=== PATIENT | female | born 1940 | race Caucasian/White ===

== ENCOUNTER → 2021-04-24 15:48 | Outpatient (CLI) | payer MEDICARE, BC, SELFPAY | PROVIDERS: Family Provider Internal Medicine Geriatric Medicine; PCP Registered Nurse Diabetes Educator; Referring Provider Registered Nurse Diabetes Educator; Visit Provider Registered Nurse Diabetes Educator | DX: N39.0 Urinary tract infection, site not specified (principal) | CPT/HCPCS: 87086 ==

== ENCOUNTER → 2021-06-05 10:06 | Outpatient (CLI) | payer MEDICARE, BC, SELFPAY | PROVIDERS: Family Provider Internal Medicine Geriatric Medicine; PCP Registered Nurse Diabetes Educator; Visit Provider Registered Nurse Diabetes Educator | DX: N39.0 Urinary tract infection, site not specified (principal); R30.0 Dysuria | CPT/HCPCS: 87086 ==

== ENCOUNTER → 2021-06-30 16:17 | Outpatient (CLI) | payer MEDICARE, BC, SELFPAY | PROVIDERS: Family Provider Internal Medicine Geriatric Medicine; PCP Registered Nurse Diabetes Educator; Referring Provider Registered Nurse Diabetes Educator; Visit Provider Registered Nurse Diabetes Educator | DX: N39.0 Urinary tract infection, site not specified (principal) | CPT/HCPCS: 87077; 87086; 87186 ==

== ENCOUNTER → 2021-07-18 09:29 | Outpatient (CLI) | payer MEDICARE, BC, SELFPAY | PROVIDERS: Family Provider Internal Medicine Geriatric Medicine; PCP Registered Nurse Diabetes Educator; Visit Provider Urology | DX: N39.0 Urinary tract infection, site not specified (principal) | CPT/HCPCS: 87086 ==

== ENCOUNTER → 2021-07-18 10:38 | Outpatient (CLI) | payer MEDICARE, BC, SELFPAY ==
[2021-07-18 12:46] LABS: BUN Creatinine Ratio 28.2 (6-22); Blood Urea Nitrogen 33 mg/dL (7-17); Calcium 10.2 mg/dL (8.4-10.2); Carbon Dioxide 24 mmol/L (22-32); Chloride 104 mmol/L (98-107); Estimated Glomerular Filt Rate 44.4 mL/min (>60); Glucose 112 mg/dL (80-110); HEMOLYSIS < 15 (0-50); Potassium 4.5 mmol/L (3.4-5.1); Sodium 140 mmol/L (137-145)
== END ==
PROVIDERS: Family Provider Internal Medicine Geriatric Medicine; PCP Registered Nurse Diabetes Educator; Referring Provider Urology; Visit Provider Urology
DX: N39.0 Urinary tract infection, site not specified (principal); N39.41 Urge incontinence; R31.0 Gross hematuria; G20 Parkinson's disease; N89.8 Other specified noninflammatory disorders of vagina; Z87.891 Personal history of nicotine dependence; Z68.26 Body mass index [BMI] 26.0-26.9, adult
CPT/HCPCS: 36415; 80048; 81002; 87086; 99215

== ENCOUNTER → 2021-07-24 09:51 | Outpatient (CLI) | payer MEDICARE, BC, SELFPAY ==
--- NOTE | 2021-07-24 09:53 | DI.CT.S_ITS ---
PROCEDURE: CT ABDOMEN PELVIS WO/W CON INDICATIONS: Recurring urinary tract infections gross hematuria TECHNIQUE: Optional 5 mm thick noncontrast images acquired from the diaphragm to the symphysis pubis. After the administration of intravenous contrast, 5 mm thick images acquired from the diaphragm to the symphysis pubis after a 10-minute delay. 2 mm thick coronal and sagittal reformats were then performed of the kidneys and ureters. For radiation dose reduction, the following was used: automated exposure control, adjustment of mA and/or kV according to patient size. COMPARISON: [facility], CT, IVP (ABD & PEL WWO CONTRAST), 07/10/2014, 9:38. [facility], CT, ABDOMEN W&WO CONTRAST, 04/06/2014, 10:51. [facility], CT, ABDOMEN/PELVIS WITH CONTRAST, 05/14/2016, 10:18. FINDINGS: Image quality: Excellent. Lung bases: Subpleural septal thickening and mild pulmonary fibrosis. There is a 0.6 cm ground-glass nodule in the right lower lobe. Heart size is normal. There is severe coronary artery calcification. Small hiatal hernia. Urinary system: There is a 2.2 cm parapelvic cyst in the inferior pole of the left kidney. Both kidneys are normal in size, without hydronephrosis or nephrolithiasis on pre-contrast images. Mild bilateral perinephric fat stranding. There is symmetric renal enhancement. Bilateral renal cortical scars are present, most noticeable in the superior lateral aspect of the left kidney. Renal calyces appear normal in morphology when filled with contrast. Opacified portions of both ureters demonstrate normal caliber. Bladder wall thickness is normal. No calcified bladder stones. Other solid organs: Liver is normal in size and enhancement. Gallbladder is surgically absent. Biliary system is non dilated. Pancreas enhances normally. Spleen is normal in size and enhancement. No adrenal nodules. Peritoneum and bowel: Bowel loops demonstrate normal wall thickness and caliber. There are numerous colonic diverticula in sigmoid colon. No CT findings to suggest acute diverticulitis. No free fluid or air. Nodes and vessels: No retroperitoneal or mesenteric adenopathy by size criteria. Aorta and inferior vena cava are normal in size. Moderate to severe atherosclerotic calcifications. Abdominal wall: No ventral hernias. Pelvis: No pathologic free pelvic fluid. No inguinal hernias or adenopathy. Bones: Mild levoscoliosis. There are degenerative and postsurgical changes in the lower thoracic spine and lumbar spine. No suspicious bony lesions. No vertebral body compression fractures. IMPRESSION: 1. No renal stone or hydronephrosis. A cause for gross hematuria is not identified. 2. There is a 2.2 cm parapelvic cyst in the inferior pole of the left kidney. 3. Bilateral renal cortical scars, most noticeable in the superior lateral aspect of the left kidney. 4. Diverticulosis without diverticulitis. 5. Bilateral interstitial thickening and mild pulmonary fibrosis. 6. A 6 mm nodule in the right lower lobe. Please see enclosed follow-up recommendation. 7. Severe coronary artery calcification. Fleischner Society criteria for SOLID lung nodule followup. Nodule size (mm)Low-risk patientHigh-risk patient?4No follow-up neededFollow-up at 12 mo; if no change, no further follow-up>1-4Amnhzy-ks CT at 12 mo; if no change, no further follow-up needed.Initial follow-up CT at 6-12 mo, then 18-24 mo if no change. >6-8Initial follow-up CT at 6-12 mo, then 18-24 mo if no change. Initial follow-up CT at 3-6 mo, then 9-12 mo and 24 mo if no change. >8Follow-up CT at 3, 9, 24 mo. Or PET and/or biopsy.Same as for low-risk pts. Dictated by: Taisha Alberto M.D. on 07/24/2021 at 15:34 Approved by: Taisha Alberto M.D. on 07/24/2021 at 17:37
== END ==
PROVIDERS: Family Provider Internal Medicine Geriatric Medicine; PCP Registered Nurse Diabetes Educator; Referring Provider Urology; Visit Provider Urology
DX: N39.0 Urinary tract infection, site not specified (principal); R31.0 Gross hematuria; N28.1 Cyst of kidney, acquired; N28.89 Other specified disorders of kidney and ureter; K57.90 Diverticulosis of intestine, part unspecified, without perforation or abscess without bleeding; J84.10 Pulmonary fibrosis, unspecified
CPT/HCPCS: 74178; Q9967

== ENCOUNTER → 2021-08-12 07:10 | Outpatient (CLI) | payer MEDICARE, BC, SELFPAY ==
[2021-08-12 09:11] LABS: Free T3, Triiodothyronine Free 2.53 pg/mL (2.77-5.27); Free T4, Direct Thyroxine 1.29 ng/dL (0.78-2.19)
== END ==
PROVIDERS: Family Provider Internal Medicine Geriatric Medicine; PCP Registered Nurse Diabetes Educator; Referring Provider Registered Nurse Diabetes Educator; Visit Provider Registered Nurse Diabetes Educator
DX: E03.9 Hypothyroidism, unspecified (principal)
CPT/HCPCS: 36415; 84439; 84443; 84481

== ENCOUNTER → 2021-09-30 15:17 | Outpatient (CLI) | payer MEDICARE, BC, SELFPAY | PROVIDERS: Family Provider Internal Medicine Geriatric Medicine; PCP Registered Nurse Diabetes Educator; Referring Provider Urology; Visit Provider Urology | DX: N39.41 Urge incontinence (principal); N39.0 Urinary tract infection, site not specified; R31.0 Gross hematuria; N89.8 Other specified noninflammatory disorders of vagina; Z87.891 Personal history of nicotine dependence; R30.0 Dysuria | CPT/HCPCS: 51798; 81002; 87077; 87086; 87186; 99214 ==

== ENCOUNTER → 2021-10-10 10:37 | Outpatient (CLI) | payer MEDICARE, BC, SELFPAY ==
--- NOTE | 2021-10-10 10:39 | DI.RAD.S_ITS ---
PROCEDURE: FL CYSTOGRAM INDICATIONS: Rule out vesicoureteral reflux COMPARISON: [facility], CT, CT ABDOMEN PELVIS WO/W CON, 07/24/2021, 10:10. FINDINGS: KUB: Preprocedural picker / packer film demonstrates a normal bowel gas pattern. A Snell catheter is present. No suspicious abdominal calcifications. Bony structures are unremarkable. Note is made of lumbar sacral fusion. Metallic hardware partially obscure pelvic structures. Bladder: The filled bladder appears normal in contour. Early images demonstrate no bladder wall trabeculations. There is grade IV vesicoureteral reflux on the left and grade III vesicoureteral reflux on the right. No contrast extravasation. IMPRESSION: 1. Bilateral vesicoureteral reflux, grade IV on the left and grade III on the right. 2. Normal appearance of urinary bladder. Dictated by: Taisha Alberto M.D. on 10/10/2021 at 16:05 Approved by: Taisha Alberto M.D. on 10/10/2021 at 16:10
== END ==
PROVIDERS: Family Provider Internal Medicine Geriatric Medicine; PCP Registered Nurse Diabetes Educator; Referring Provider Urology; Visit Provider Urology
DX: N39.0 Urinary tract infection, site not specified (principal); N13.70 Vesicoureteral-reflux, unspecified
CPT/HCPCS: 74430

== ENCOUNTER → 2021-12-29 10:30 | Outpatient (CLI) | payer MEDICARE, BC, SELFPAY | PROVIDERS: Family Provider Internal Medicine Geriatric Medicine; PCP Registered Nurse Diabetes Educator; Visit Provider Registered Nurse Diabetes Educator | DX: I10 Essential (primary) hypertension (principal) | CPT/HCPCS: 87077; 87086; 87186 ==

== ENCOUNTER → 2022-01-09 09:29 | Outpatient (CLI) | payer MEDICARE, BC, SELFPAY ==
[2022-01-09 11:44] LABS: Creatinine Urine Random 141.9 mg/dL
[2022-01-09 11:49] LABS: Microalbumi Creatinin Ratio Ur 46.5 ug/mg CR (<30); Microalbumin Urine Random 6.6 mg/dL (0-1.6)
== END ==
PROVIDERS: Family Provider Internal Medicine Geriatric Medicine; PCP Registered Nurse Diabetes Educator; Referring Provider Registered Nurse Diabetes Educator; Visit Provider Registered Nurse Diabetes Educator
DX: E03.9 Hypothyroidism, unspecified (principal); E11.9 Type 2 diabetes mellitus without complications; E78.5 Hyperlipidemia, unspecified; I10 Essential (primary) hypertension
CPT/HCPCS: 82043; 82570

== ENCOUNTER → 2022-01-30 10:23 | Outpatient (CLI) | payer MEDICARE, BC, SELFPAY | PROVIDERS: Family Provider Internal Medicine Geriatric Medicine; PCP Registered Nurse Diabetes Educator; Visit Provider Urology | DX: R30.0 Dysuria (principal); N13.70 Vesicoureteral-reflux, unspecified; N89.8 Other specified noninflammatory disorders of vagina; Z87.891 Personal history of nicotine dependence | CPT/HCPCS: 51798; 81002; 87077; 87086; 87186; 99212 ==

== ENCOUNTER → 2022-05-28 08:04 | Outpatient (CLI) | payer MEDICARE, BC, SELFPAY | PROVIDERS: Family Provider Internal Medicine Geriatric Medicine; PCP Registered Nurse Diabetes Educator; Visit Provider Urology | DX: N39.0 Urinary tract infection, site not specified (principal) | CPT/HCPCS: 81002; 87077; 87086; 87186; 99213 ==

== ENCOUNTER → 2022-06-18 09:56 | Outpatient (CLI) | payer MEDICARE, BC, SELFPAY ==
[2022-07-02 12:13] LABS: Misc. to WA State Lab SEE SEPARATE REPORTS
== END ==
PROVIDERS: Family Provider Internal Medicine Geriatric Medicine; PCP Registered Nurse Diabetes Educator; Visit Provider Urology
DX: N39.0 Urinary tract infection, site not specified (principal); N13.70 Vesicoureteral-reflux, unspecified; B37.2 Candidiasis of skin and nail; N89.8 Other specified noninflammatory disorders of vagina; R33.9 Retention of urine, unspecified; N39.41 Urge incontinence; Z88.1 Allergy status to other antibiotic agents; Z87.891 Personal history of nicotine dependence
CPT/HCPCS: 81002; 87077; 87086; 87186; 99214

== ENCOUNTER → 2022-07-09 13:32 | Outpatient (CLI) | payer MEDICARE, BC, SELFPAY | PROVIDERS: Family Provider Internal Medicine Geriatric Medicine; PCP Registered Nurse Diabetes Educator; Referring Provider Registered Nurse Diabetes Educator; Visit Provider Registered Nurse Diabetes Educator | DX: M81.0 Age-related osteoporosis without current pathological fracture (principal); Z13.820 Encounter for screening for osteoporosis; Z78.0 Asymptomatic menopausal state; Z79.83 Long term (current) use of bisphosphonates; Z87.311 Personal history of (healed) other pathological fracture | CPT/HCPCS: 77080 ==

== ENCOUNTER → 2022-07-21 08:36 | Outpatient (CLI) | payer MEDICARE, BC, SELFPAY | PROVIDERS: Family Provider Internal Medicine Geriatric Medicine; PCP Registered Nurse Diabetes Educator; Visit Provider Urology | DX: N39.0 Urinary tract infection, site not specified (principal); N13.70 Vesicoureteral-reflux, unspecified; N89.8 Other specified noninflammatory disorders of vagina; N39.41 Urge incontinence; Z88.1 Allergy status to other antibiotic agents | CPT/HCPCS: 51798; 81002; 87077; 87086; 87186; 99214 ==

== ENCOUNTER → 2022-08-10 08:13 | Outpatient (CLI) | payer MEDICARE, BC, SELFPAY ==
--- NOTE | 2022-08-10 | DI.MG.S_ITS ---
BILATERAL DIGITAL DIAGNOSTIC MAMMOGRAM 3D/2D: 08/10/2022 CLINICAL: Breast pain. Comparison is made to exams dated: 10/25/2018 mammogram - [facility], 09/08/2018 mammogram, 03/08/2017 mammogram, and 03/03/2016 mammogram - [facility]. There are scattered areas of fibroglandular density in both breasts (category b / 25%-50% glandular tissue). There are benign calcifications in both breasts. There also are benign vascular calcifications in both breasts. Additionally, there is a biopsy clip in the left breast. No significant masses, calcifications, or other findings are seen in either breast. IMPRESSION: INCOMPLETE: NEEDS ADDITIONAL IMAGING EVALUATION There is no mammographic abnormality seen in the left breast to correspond with the pain, however, targeted ultrasound of the left breast is recommended and will be performed immediately following this exam. Based on the Tyrer Cuzick model (a risk assessment model) the patient's lifetime risk is 0.7% and her 10 year risk is 0.0%. According to the ACR, ACS, and NCCN guidelines, an annual breast MRI exam along with mammogram is recommended if the patient's lifetime risk is 20% or greater. This exam was interpreted at Station ID: [id number]. NOTE: For mammograms, a report in lay terms will be sent to the patient. Approximately 15% of breast malignancies will not be visualized mammographically. In the management of a palpable breast mass, a negative mammogram must not discourage biopsy of a clinically suspicious lesion. Electronically Signed By: Alona Maloney M.D. lk/:08/10/2022 09:01:05 ACR BI-RADS Category 0: Incomplete 3340F
--- NOTE | 2022-08-10 09:38 | DI.US.S_ITS ---
At the request of: PEREZ NIETO Procedure: US breast LT limited LIMITED ULTRASOUND OF LEFT BREAST AND AXILLA: 08/10/2022 CLINICAL: Diffuse left breast pain. Comparison is made to exams dated: 08/10/2022 mammogram - [facility], 10/25/2018 mammogram, 10/25/2018 ultrasound - [facility], and 09/08/2018 mammogram - [facility]. Color flow ultrasound of the left breast axilla was performed on the areas of interest. Sierra scale images of the real-time examination were reviewed. IMPRESSION: NEGATIVE There is no sonographic evidence of malignancy. There is no mammographic or sonographic abnormality seen in the left breast to correspond with the pain, however, clinical followup is recommended. Return to annual mammogram screening schedule is recommended. This exam was interpreted at Station ID: [id number]. Electronically Signed By: Alona Maloney M.D. lk/:08/10/2022 10:51:34 letter sent: Clinical Evaluation Ultrasound BI-RADS: 1 Negative Continued Report - Page 2 of 2 Patient Name: KARLENE DOLL date: 1940 Sex: F Attending Physician: [place] Indications: Date: 08/10/2022 10:15 At the request of: PEREZ NIETO Procedure: US breast LT limited
== END ==
PROVIDERS: Family Provider Internal Medicine Geriatric Medicine; PCP Registered Nurse Diabetes Educator; Referring Provider Registered Nurse Diabetes Educator; Visit Provider Registered Nurse Diabetes Educator
DX: R92.8 Other abnormal and inconclusive findings on diagnostic imaging of breast (principal); N64.4 Mastodynia
CPT/HCPCS: 76642; 77066; G0279

== ENCOUNTER → 2022-08-12 09:12 | Outpatient (CLI) | payer MEDICARE, BC, SELFPAY | PROVIDERS: Family Provider Internal Medicine Geriatric Medicine; PCP Registered Nurse Diabetes Educator; Visit Provider Urology | DX: N39.0 Urinary tract infection, site not specified (principal); N39.41 Urge incontinence; N13.70 Vesicoureteral-reflux, unspecified; E11.41 Type 2 diabetes mellitus with diabetic mononeuropathy; Z87.891 Personal history of nicotine dependence; Z88.1 Allergy status to other antibiotic agents | CPT/HCPCS: 81002; 87086; 99214 ==

== ENCOUNTER → 2022-09-11 08:59 | Outpatient (CLI) | payer MEDICARE, BC, SELFPAY | PROVIDERS: Family Provider Internal Medicine Geriatric Medicine; PCP Registered Nurse Diabetes Educator; Visit Provider Urology | DX: N39.0 Urinary tract infection, site not specified (principal); N39.41 Urge incontinence; R33.9 Retention of urine, unspecified; N13.70 Vesicoureteral-reflux, unspecified; Z88.1 Allergy status to other antibiotic agents; Z87.891 Personal history of nicotine dependence | CPT/HCPCS: 51798; 81002; 87086; 99214 ==

== ENCOUNTER → 2022-11-03 09:53 | Outpatient (CLI) | payer MEDICARE, BC, SELFPAY | PROVIDERS: Family Provider Internal Medicine Geriatric Medicine; PCP Registered Nurse Diabetes Educator; Visit Provider Urology | DX: N39.0 Urinary tract infection, site not specified (principal); N39.41 Urge incontinence; N89.8 Other specified noninflammatory disorders of vagina; N13.70 Vesicoureteral-reflux, unspecified; Z88.1 Allergy status to other antibiotic agents; Z87.891 Personal history of nicotine dependence | CPT/HCPCS: 51798; 81002; 87077; 87086; 87186; 99214 ==

== ENCOUNTER → 2022-11-20 07:03 | Outpatient (CLI) | payer MEDICARE, BC, SELFPAY ==
[2022-11-20 09:44] LABS: Hematocrit 41.2 % (36-46); Hemoglobin 13.8 g/dL (12.0-16.0); Mean Corpuscular HGB Conc 33.6 % (30-36); Mean Corpuscular Hemoglobin 30.9 PG (26-34); Platelet Count 246 X10^3/uL (150-400); Red Blood Cell Count 4.48 X10^6/uL (4.0-5.2); Red Cell Distribution Width 13.1 % (11.6-14.8); White Blood Cell Count 9.7 X10^3/uL (4.5-11.0)
[2022-11-20 09:55] LABS: Creatinine Urine Random 19.4 mg/dL
[2022-11-20 10:00] LABS: Microalbumi Creatinin Ratio Ur 149.4 ug/mg CR (<30); Microalbumin Urine Random 2.9 mg/dL (0-1.6)
[2022-11-20 10:35] LABS: Alanine Aminotransferase 17 IU/L (<35); Albumin 4.6 g/dL (3.5-5.0); Albumin Globulin Ratio 1.6 (1.0-2.8); Alkaline Phosphatase 92 U/L (38-126); Aspartate Aminotransferase 19 IU/L (14-36); BUN Creatinine Ratio 33.8 (6-22); Bilirubin Total 0.7 mg/dL (0.2-1.3); Blood Urea Nitrogen 25 mg/dL (7-17); Carbon Dioxide 29 mmol/L (22-32); Chloride 100 mmol/L (98-107); Cholesterol 110 mg/dL (140-199); Estimated Glomerular Filt Rate > 60 mL/min (>60); Globulin 2.9 g/dL (1.7-4.1); Glucose 158 mg/dL (80-110); HDL Cholesterol 38 mg/dL (40-60); HEMOLYSIS < 15 (0-50); LDL Cholesterol Calculated 49 mg/dL (<100); Potassium 4.1 mmol/L (3.4-5.1); Sodium 139 mmol/L (137-145); Total Protein 7.5 g/dL (6.3-8.2); Triglycerides 116 mg/dL (35-150)
[2022-11-20 10:46] LABS: Hemoglobin A1C% w Est Avg Glu 7.5 % (4.0-6.0)
[2022-11-20 11:01] LABS: TSH w/ Reflex to FT4 0.67 uIU/mL (0.47-4.68)
== END ==
PROVIDERS: Family Provider Internal Medicine Geriatric Medicine; PCP Registered Nurse Diabetes Educator; Referring Provider Registered Nurse Diabetes Educator; Visit Provider Registered Nurse Diabetes Educator
DX: E03.9 Hypothyroidism, unspecified (principal); E11.42 Type 2 diabetes mellitus with diabetic polyneuropathy; E78.5 Hyperlipidemia, unspecified; I25.10 Atherosclerotic heart disease of native coronary artery without angina pectoris
CPT/HCPCS: 36415; 80053; 80061; 82043; 82570; 83036; 84443; 85027

== ENCOUNTER → 2023-01-12 07:05 | Outpatient (CLI) | payer MEDICARE, BC, SELFPAY ==
[2023-01-12 09:54] LABS: Creatinine Urine Random 53.7 mg/dL
[2023-01-12 09:59] LABS: Microalbumi Creatinin Ratio Ur 98.6 ug/mg CR (<30); Microalbumin Urine Random 5.3 mg/dL (0-1.6)
[2023-01-13 05:13] LABS: Labcorp Hemoglobin (Hb) A1c 7.4 % (4.8-5.6)
== END ==
PROVIDERS: Family Provider Internal Medicine Geriatric Medicine; PCP Registered Nurse Diabetes Educator; Referring Provider Registered Nurse Diabetes Educator; Visit Provider Registered Nurse Diabetes Educator
DX: E11.9 Type 2 diabetes mellitus without complications (principal)
CPT/HCPCS: 36415; 82043; 82570; 83036

== ENCOUNTER → 2023-03-10 08:34 | Outpatient (CLI) | payer MEDICARE, BC, SELFPAY ==
--- NOTE | 2023-03-10 | DI.ECHO.S_ITS ---
[facility]+ [facility] +---------+ : : [address] [place] : : : : [id number] : : : : Phone: [phone]+ Echocardiogram Report + + :Name: KARLENE BACA Study Date: 03/10/2023 Height: 59 in : :[facility] ReadingLocation: Weight: 124 lb : : Gender: Female BSA: 1.5 m2 : :: 1940 Age: 82 yrs BP: 124/65 mmHg: :Reason For Study: HYPERTENSION : :Ordering Physician: NASIR, : :EDY Performed By: Jovana Shaffer : :Referring: EDY WEINBERG : + + Interpretation Summary The left ventricle is normal in size and wall thickness. The ejection fraction is estimated to be 60-65%. There are no focal wall motion abnormalities. Diastolic parameters suggest a relaxation abnormality of the left ventricle, consistent with probable normal filling pressures. The right ventricle is normal in size and function. The right ventricular systolic pressure is estimated to be at least 30 mmHg based on an estimated right atrial pressure of 3 mm Hg. The left atrial size is normal. The right atrium is normal in size. There is no significant valvular heart disease. The aortic root is normal size. Procedure: A two-dimensional transthoracic echocardiogram with color flow and Doppler was performed. The study quality was technically adequate. Comparison is made with the echocardiogram of 04/05/2017. The patient was in sinus rhythm with heart rates between 60-81 bpm during the exam. Left Ventricle: The left ventricle is normal in size and wall thickness. The ejection fraction is estimated to be 60-65%. There are no focal wall motion abnormalities. Diastolic parameters suggest a relaxation abnormality of the left ventricle, consistent with probable normal filling pressures. Right Ventricle: The right ventricle is normal in size and function. Atria: The left atrial size is normal. The right atrium is normal in size. There is no Doppler evidence for an interatrial shunt. Mitral Valve: The mitral valve is normal in structure and function. There is mild mitral regurgitation. Aortic Valve: The aortic valve is trileaflet. The aortic valve opens well. There is no aortic valve stenosis. No aortic regurgitation is present. Tricuspid Valve: The tricuspid valve is normal in structure and function. There is mild tricuspid regurgitation. The right ventricular systolic pressure is estimated to be at least 30 mmHg based on an estimated right atrial pressure of 3 mm Hg. Pulmonic Valve: The pulmonic valve leaflets are thin and pliable; valve motion is normal. There is trace pulmonic regurgitation. There is no significant valvular heart disease. Great Vessels: The aortic root is normal size. The dimensions of the ascending aorta are normal. The IVC is of normal diameter and collapses greater than 50% with a sniff. This suggests a low right atrial pressure of 3 mm Hg. Pericardium/ Pleura There is no pericardial effusion. There is no pleural effusion. MMode/2D Measurements & Calculations LVIDd: 3.5 cm LVOT diam: 2.0 cm LVIDs: 2.5 cm Ao root diam: 3.1 cm FS: 28.6 % asc Aorta Diam: 3.4 cm EPSS: 1.3 cm Ao Arch Diam (Prox Trans): 2.2 cm IVSd: 0.91 cm LVPWd: 0.93 cm LV guerin. diameter/BSA (cm/m^2): 2.3 LV sys. diameter/BSA (cm/m^2): 1.7 LA A2 area: 18.3 cm2 RA long axis: 4.5 cm LA A4 area: 14.3 cm2 RA area: 12.5 cm2 LA length (vol): 4.7 cm RA vol: 29.2 ml LA vol: 47.6 ml RA : 19.4 ml/m2 LA vol index: 31.7 ml/m2 IVC diam: 0.98 cm RVD1 (basal): 3.7 cm RVD2 (mid): 3.3 cm TAPSE: 1.7 cm Doppler Measurements & Calculations Ao V2 max: 175.8 cm/sec LVOT Max Jorge: 111.7 cm/sec Ao V2 mean: 119.1 cm/sec LV V1 max P.0 mmHg Ao max P.4 mmHg LV V1 VTI: 26.4 cm Ao mean P.5 mmHg AV(I,D): 2.3 cm2 Ao V2 VTI: 37.2 cm AV(V,D): 2.1 cm2 sev ratio: 0.71 AV indexed to BSA (cm^2/m^2): 1.5 MV E max jorge: 91.2 cm/sec TR max jorge: 258.3 cm/sec MV A max jorge: 98.8 cm/sec TR max P.7 mmHg MV E/A: 0.92 PA V2 max: 98.5 cm/sec Med Peak E' Jorge: 4.8 cm/sec PA V2 mean: 65.4 cm/sec E/E' med: 18.8 PA mean P.0 mmHg Lat Peak E' Jorge: 7.5 cm/sec PA pr(Accel): 32.8 mmHg E/E' lat: 12.1 E/e' average: 15.5 MV dec time: 0.32 sec SV(LVOT): 86.2 ml Reading Physician:12:58 PM
== END ==
PROVIDERS: Family Provider Internal Medicine Geriatric Medicine; PCP Registered Nurse Diabetes Educator; Referring Provider Internal Medicine Cardiovascular Disease; Visit Provider Internal Medicine Cardiovascular Disease
DX: I10 Essential (primary) hypertension (principal); I07.1 Rheumatic tricuspid insufficiency; I25.10 Atherosclerotic heart disease of native coronary artery without angina pectoris
CPT/HCPCS: 93306

== ENCOUNTER → 2023-08-18 08:08 | Outpatient (CLI) | payer MEDICARE, BC, SELFPAY ==
--- NOTE | 2023-08-18 08:09 | DI.MG.S_ITS ---
BILATERAL DIGITAL SCREENING MAMMOGRAM 3D/2D WITH CAD: 08/18/2023 CLINICAL: Routine screening. Family history of breast cancer. Comparison is made to exams dated: 08/10/2022 mammogram - [facility], 10/25/2018 mammogram - [facility], 09/08/2018 mammogram, and 03/08/2017 mammogram - [facility]. There are scattered areas of fibroglandular density in both breasts (category b / 25%-50% glandular tissue). Current study was also evaluated with a Computer Aided Detection (CAD) system. There are benign calcifications in both breasts. There also are benign vascular calcifications in both breasts. Additionally, there is a biopsy clip in the left breast. No significant masses, calcifications, or other findings are seen in either breast. There has been no significant interval change. IMPRESSION: BENIGN There is no mammographic evidence of malignancy. A 1 year screening mammogram is recommended. Based on the Tyrer Cuzick model (a risk assessment model) the patient's lifetime risk is 0.5% and her 10 year risk is 0.0%. According to the ACR, ACS, and NCCN guidelines, an annual breast MRI exam along with mammogram is recommended if the patient's lifetime risk is 20% or greater. This exam was interpreted at Station ID: [id number]. NOTE: For mammograms, a report in lay terms will be sent to the patient. Approximately 15% of breast malignancies will not be visualized mammographically. In the management of a palpable breast mass, a negative mammogram must not discourage biopsy of a clinically suspicious lesion. Electronically Signed By: Ava coto/emerita:08/18/2023 13:38:01 letter sent: Normal Exam ACR BI-RADS Category 2: Benign Finding(s) 3342F
== END ==
PROVIDERS: Family Provider Internal Medicine Geriatric Medicine; PCP Registered Nurse Diabetes Educator; Referring Provider Registered Nurse Diabetes Educator; Visit Provider Registered Nurse Diabetes Educator
DX: Z12.31 Encounter for screening mammogram for malignant neoplasm of breast (principal); Z80.3 Family history of malignant neoplasm of breast
CPT/HCPCS: 77063; 77067

== ENCOUNTER → 2023-10-05 10:31 | Outpatient (CLI) | payer MEDICARE, BC, SELFPAY ==
--- NOTE | 2023-10-05 10:33 | DI.MRI.S_ITS ---
PROCEDURE: MR LUMBAR SPINE WO CON INDICATIONS: SPINAL STENOSIS TECHNIQUE: Noncontrast sagittal T1 spin echo and T2 fast echo, sagittal STIR, and T2 fast spin echo through the lumbar spine. In cases with scoliosis, additional coronal T2 fast spin echo may be performed. COMPARISON: [facility], RG, SPINE LUMB 2 OR 3VW, 07/22/2023, 10:38. [facility], CT, CT ABDOMEN PELVIS WO/W CON, 07/24/2021, 10:10. FINDINGS: Image quality: Excellent. Alignment and Curvature: Accentuated lumbar lordosis can be seen. Minimal anterolisthesis is seen at the L4-L5 level. Bone Marrow: Marrow is of normal overall signal. No acute vertebral body compression fractures. There is a remote L5 anterior wedge deformity, stable. Spinal Cord: Conus medullaris terminates at the T12-L1 level. Visualized cord demonstrates normal signal and size. Paraspinous Soft Tissues: No paravertebral masses. Extensive postoperative changes are seen, with bilateral pedicle screws seen L3 through S1 vertical fixation rods are seen. Vertebroplasty cement can be seen at L3, L4, L5, and S1, which is better demonstrated on prior imaging. There has been removal of portions of the posterior elements. T12-L1: The disc height is well-preserved. Loss of disc signal is seen at this level. Mild generalized disc bulge is seen. Mild facet joint hypertrophy is seen. Moderate bilateral neural foraminal narrowing is seen. No central canal narrowing is seen. L1-L2: The disc height is well-preserved. Loss of disc signal is seen at this level. Mild to moderate disc bulge is seen. Mild facet joint hypertrophy is seen. Moderate bilateral neural foraminal narrowing is seen. No central canal narrowing is seen. L2-L3: The disc height is well-preserved. Loss of disc signal is seen at this level. Reactive marrow endplate changes are seen, which demonstrate mixed T1 weighted and T2-weighted signal, and are attributed to a combination of edema and fatty metaplasia (Modic type I and Modic type II changes). Moderate generalized disc bulge is seen. There is a superimposed central disc protrusion. At least moderate facet hypertrophy is seen. There is moderate to severe bilateral neural foraminal narrowing seen, with an associated a degree of compression seen upon the exiting nerve roots. At least moderate central canal narrowing is seen, as on series 5, image 15. L3-L4: The disc height is well-preserved. Loss of disc signal is seen at this level. Mild generalized disc bulge is seen. Moderate facet joint hypertrophy is seen. There is at least moderate left-sided and moderate right-sided neural foraminal narrowing. No central canal narrowing is seen. L4-L5: Mild loss of disc height is seen posteriorly. There is mild increased fluid signal seen along this disc level, as on series 4, image 18. No endplate edema can be seen. Moderate generalized disc bulge is seen. Moderate facet joint hypertrophy is seen. There is at least moderate bilateral neural foraminal narrowing seen. There is a degree of compression seen upon the exiting nerve roots. No central canal narrowing is seen. L5-S1: The disc height is well-preserved. Loss of disc signal is seen at this level. Mild generalized disc bulge is seen. Moderate facet joint hypertrophy is seen. There is mild right-sided and no significant left-sided neural foraminal narrowing. No central canal narrowing is seen. IMPRESSION: Extensive lumbosacral fixation hardware can be seen. Multiple levels of degenerative change can be seen. Increased fluid signal can be seen along the L4-L5 disc level, without endplate edema. This is felt most likely to be related to a degenerative process. Differential diagnosis includes discitis, yet this is considered to be less likely. If clinically appropriate, a follow-up study with IV contrast could be considered for further evaluation. Dictated by: Ashish Nava M.D. on 10/05/2023 at 15:40 Approved by: Ashish Nava M.D. on 10/05/2023 at 15:47
== END ==
PROVIDERS: Family Provider Internal Medicine Geriatric Medicine; PCP Registered Nurse Diabetes Educator; Referring Provider Physical Medicine & Rehabilitation; Visit Provider Physical Medicine & Rehabilitation
DX: M48.062 Spinal stenosis, lumbar region with neurogenic claudication (principal); M47.817 Spondylosis without myelopathy or radiculopathy, lumbosacral region; M47.816 Spondylosis without myelopathy or radiculopathy, lumbar region
CPT/HCPCS: 72148

== ENCOUNTER → 2024-01-11 06:41 | Outpatient (CLI) | payer MEDICARE, BC, SELFPAY ==
--- NOTE | 2024-01-11 06:44 | DI.CT.S_ITS ---
PROCEDURE: CT KIDNEY URETER BLADDER (KUB) INDICATIONS: ABDOMINAL/FLANK PAIN; STONE SUSPECTED TECHNIQUE: Axial sections were acquired from the lung bases to the pubic symphysis. Coronal and sagittal reformats were performed. For radiation dose reduction, the following was used: automated exposure control, adjustment of mA and/or kV according to patient size. COMPARISON: CT IVP 07/24/2021. FINDINGS: Image quality: Diagnostic. Lower Chest: Chronic emphysematous changes at bilateral lung bases are seen with suggestion of interstitial pulmonary fibrosis. No pleural effusion or pneumothorax. Heart size is normal, no pericardial effusion. URINARY: Right Kidney: No obstructing stones or hydronephrosis. Hyperdensity involving upper pole of right kidney is seen which may represent punctate nonobstructing stones. Right Ureter: No hydroureter. Left Kidney: No obstructing stones or hydronephrosis. Simple appearing peripelvic cyst in mid to lower pole left kidney is seen measures 2 cm in size. Left Ureter: No hydroureter. Bladder: Normal wall thickness. No stones. ABDOMEN: Liver: No contour-deforming solid mass. Gallbladder: Gallbladder is surgically absent. Biliary ducts: No biliary dilation. Pancreas: No ductal dilation. Spleen: Size is within normal limits. Adrenal Glands: No adrenal nodules. Stomach and Bowel: There is no bowel obstruction. No abnormal bowel wall thickening or mesenteric fat stranding. No abscess collection. Peritoneum: No abnormal intraperitoneal fluid. No free air. Ventral Wall: No hernia. Abdominal Nodes: No enlarged retroperitoneal or mesenteric lymph nodes. Vessels: Aorta and inferior vena cava are normal in size. Moderate atherosclerotic calcifications throughout abdominal aorta is seen. PELVIS: Pelvic Organs: Unremarkable. Pelvic Nodes: Unremarkable. Miscellaneous: No inguinal hernias are seen. Bones: Postsurgical changes are noted from prior L3 through S1 fusion. Chronic appearing anterior wedge compression deformity at L5 level is seen. No aggressive appearing bony lesions. No acute vertebral body compression fracture. No gross hardware loosening or failure. IMPRESSION: 1. No obstructing stones or hydronephrosis. Possible tiny punctate nonobstructing stone in upper pole right kidney. Stable appearing left peripelvic renal cyst. 2. No acute inflammatory process is seen in abdomen or pelvis. No free fluid or free air. 3. Stable postsurgical changes in lower lumbar spine. No gross hardware loosening or failure. No acute compression fracture. Chronic appearing anterior wedge compression deformity at L5 level. Dictated by: Hira Washburn M.D. on 01/11/2024 at 10:55 Approved by: Hira Washburn M.D. on 01/11/2024 at 11:18
[2024-01-11 08:20] LABS: Hemoglobin A1C% w Est Avg Glu 6.7 % (4.0-6.0)
[2024-01-11 16:07] LABS: Microalbumin Urine Random < 0.6 mg/dL (0-1.6)
[2024-01-11 16:12] LABS: Creatinine Urine Random 13.8 mg/dL
== END ==
PROVIDERS: Family Provider Internal Medicine Geriatric Medicine; PCP Registered Nurse Diabetes Educator; Referring Provider Internal Medicine Infectious Disease; Visit Provider Internal Medicine Infectious Disease
DX: N28.1 Cyst of kidney, acquired (principal); M43.8X6 Other specified deforming dorsopathies, lumbar region; E11.40 Type 2 diabetes mellitus with diabetic neuropathy, unspecified; R10.12 Left upper quadrant pain; Z90.49 Acquired absence of other specified parts of digestive tract; Z98.1 Arthrodesis status
CPT/HCPCS: 36415; 74176; 82043; 82570; 83036

== ENCOUNTER → 2024-08-01 09:11 | Outpatient (CLI) | payer MEDICARE, BC, SELFPAY ==
--- NOTE | 2024-08-01 09:12 | DI.RAD.S_ITS ---
PROCEDURE: XR DEXA AXIAL SKELETON INDICATIONS: Re eval COMPARISON: [facility], CR, XR DEXA AXIAL SKELETON, 07/09/2022, 14:09. FINDINGS: Left Hip: Bone mineral density 0.641 g/cm2, T score -2.5, there is significant interval decreased. Left Femoral Neck: Bone mineral density 0.555 g/cm2, T score -2.6. Right Hip: Bone mineral density 0.703 g/cm2, T score -2.0, no significant interval change. Right Femoral Neck: Bone mineral density 0.593 g/cm2, T score -2.3. Left Forearm: Bone mineral density 0.500 g/cm2, T score -3.2. Fracture Risk Calculation (when applicable): 10-year fracture risk of a major osteoporotic fracture 24 percent and of a hip fracture 7.5 percent. (T score greater or equal to -1.0 to: NORMAL) (T score from -1.1 to -2.4: OSTEOPENIA) (T score less than or equal to -2.5: OSTEOPOROSIS) IMPRESSION: Osteoporosis. There is significant interval decrease in bone mineral density at the left hip. Follow-up guidelines as follows: Osteoporosis: Consider a repeat DEXA and Vertebral Fracture Assessment (VFA) exam in 2 years or sooner if medically necessary, to reassess this patient's status. Osteopenia: Consider a repeat DEXA in 2-3 years to reassess this patient's status, or if there is a new clinical indication. Normal: Consider a repeat DEXA in 5 years or sooner, or if there is a new clinical indication. All treatment decisions require clinical judgment and consideration of individual patient factors, including patient preferences, comorbidities, previous drug use, risk factors not captured in the FRAX model (e.g., frailty, falls, vitamin D deficiency, increased bone turnover, interval significant decline in bone density ) and possible under- or over-estimation of fracture risk by FRAX. In addition, the NOF Guide recommends that FDA-approved medical therapies be considered in postmenopausal women and men age >= 50 years with a: * Hip or vertebral (clinical or morphometric) fracture * T-score of <=-2.5 at the spine or hip * Ten-year fracture probability by FRAX of >= 3% for hip fracture or >=20% for major osteoporotic fracture. People with diagnosed cases of osteoporosis or at high risk for fracture should have regular bone mineral density tests. For patients eligible for Medicare, routine testing is allowed once every 2 years. The testing frequency can be increased to one year for patients who have rapidly progressing disease, those who are receiving or discontinuing medical therapy to restore bone mass, or have additional risk factors. Dictated by: Hal Coyle M.D. on 08/02/2024 at 0:16 Approved by: Hal Coyle M.D. on 08/02/2024 at 0:19
== END ==
PROVIDERS: Family Provider Internal Medicine Geriatric Medicine; PCP Registered Nurse Diabetes Educator; Referring Provider Registered Nurse Diabetes Educator; Visit Provider Registered Nurse Diabetes Educator
DX: M81.0 Age-related osteoporosis without current pathological fracture (principal)
CPT/HCPCS: 77080; 77081

== ENCOUNTER → 2024-08-30 08:29 | Outpatient (CLI) | payer MEDICARE, BC, SELFPAY ==
--- NOTE | 2024-08-30 08:32 | DI.MG.S_ITS ---
BILATERAL DIGITAL SCREENING MAMMOGRAM 3D/2D WITH CAD: 08/30/2024 CLINICAL: Routine screening. Family history of breast cancer. Comparison is made to exams dated: 08/18/2023 mammogram, 08/10/2022 mammogram - [facility], and 10/25/2018 mammogram - [facility]. There are scattered areas of fibroglandular density (category b / 25%-50% glandular tissue). Current study was also evaluated with a Computer Aided Detection (CAD) system. There are benign post operative findings in the right breast. There also are benign post operative findings and biopsy clip in the left breast. No significant masses, calcifications, or other findings are seen in either breast. There has been no significant interval change. IMPRESSION: BENIGN There is no mammographic evidence of malignancy. A 1 year screening mammogram is recommended. Based on the Tyrer Cuzick model (a risk assessment model) the patient's lifetime risk is 0.2% and her 10 year risk is 0.0%. According to the ACR, ACS, and NCCN guidelines, an annual breast MRI exam along with mammogram is recommended if the patient's lifetime risk is 20% or greater. This exam was interpreted at Station ID: [id number]. NOTE: For mammograms, a report in lay terms will be sent to the patient. Approximately 15% of breast malignancies will not be visualized mammographically. In the management of a palpable breast mass, a negative mammogram must not discourage biopsy of a clinically suspicious lesion. Electronically Signed By: Ana Young M.D., Ph.D. marita/emerita:08/31/2024 02:59:52 letter sent: Normal Exam ACR BI-RADS Category 2: Benign
[2024-08-30 11:38] LABS: TSH w/ Reflex to FT4 0.06 uIU/mL (0.47-4.68)
[2024-08-30 12:28] LABS: Free T4, Direct Thyroxine 2.05 ng/dL (0.78-2.19)
== END ==
LOC: MAMMO 08:31
PROVIDERS: Family Provider Internal Medicine Geriatric Medicine; PCP Registered Nurse Diabetes Educator; Referring Provider Registered Nurse Diabetes Educator; Visit Provider Registered Nurse Diabetes Educator
DX: Z12.31 Encounter for screening mammogram for malignant neoplasm of breast (principal); E03.8 Other specified hypothyroidism; Z80.3 Family history of malignant neoplasm of breast
CPT/HCPCS: 36415; 77063; 77067; 84439; 84443

== ENCOUNTER → 2024-10-18 07:13 | Outpatient (CLI) | payer MEDICARE, BC, SELFPAY ==
[2024-10-18 08:44] LABS: TSH w/ Reflex to FT4 1.43 uIU/mL (0.47-4.68)
== END ==
LOC: LAB 07:14
PROVIDERS: Family Provider Internal Medicine Geriatric Medicine; PCP Registered Nurse Diabetes Educator; Referring Provider Registered Nurse Diabetes Educator; Visit Provider Registered Nurse Diabetes Educator
DX: E03.9 Hypothyroidism, unspecified (principal)
CPT/HCPCS: 36415; 84443

== ENCOUNTER → 2024-11-07 11:28 | Outpatient (CLI) | payer MEDICARE, BC, SELFPAY | PROVIDERS: Family Provider Internal Medicine Geriatric Medicine; PCP Registered Nurse Diabetes Educator; Visit Provider Urology | DX: N39.0 Urinary tract infection, site not specified (principal); N32.81 Overactive bladder | CPT/HCPCS: 51798; 81002; 87077; 87086; 87186; 99214 ==

== ENCOUNTER → 2025-01-17 09:51 | Outpatient (CLI) | payer MEDICARE, BC, SELFPAY ==
[2025-01-17 11:41] LABS: Appearance Urine UA SL CLOUDY; Bilirubin Urine UA NEGATIVE (NEGATIVE); Color Urine UA YELLOW; Glucose Urine UA NEGATIVE (Negative); Ketones Urine UA NEGATIVE (NEGATIVE); Leukocyte Esterase Urine UA 3+ (NEGATIVE); Nitrite Urine UA POSITIVE (Negative); Occult Blood Urine UA TRACE-INTACT (Negative); Protein Urine UA NEGATIVE (Negative); Specific Gravity Urine UA <=1.005 (1.000-1.035); Urobilinogen Urine UA 0.2 E.U./dL (0.2)
[2025-01-17 11:44] LABS: Urine Volume 10mL (spun)
[2025-01-17 11:48] LABS: Bacteria Urine Many (>30); RBC Urine None Seen (0-5/HPF); Squamous Epithelial Cell Urine None Seen (0-5/HPF); WBC Urine 30-100/HPF (0-5/HPF)
[2025-01-17 11:49] LABS: Culture Indicated Urine Specimen Cultured
== END ==
PROVIDERS: Family Provider Internal Medicine Geriatric Medicine; PCP Registered Nurse Diabetes Educator; Visit Provider Obstetrics & Gynecology Gynecology
DX: N39.0 Urinary tract infection, site not specified (principal); N32.81 Overactive bladder; N39.41 Urge incontinence
CPT/HCPCS: 81001; 87077; 87086

== ENCOUNTER 2025-02-19 03:14 | Emergency (ER) | payer MEDICARE, BC, SELFPAY ==
--- NOTE | 2025-02-19 03:19 | ED.GENADULT ---
HPI - General Adult General Chief complaint: Urogenital-Female Stated complaint: UTI, Dehydrated Time Seen by Provider: 02/19/25 03:18 History of Present Illness HPI narrative: 84-year-old female with history of recurrent UTI, many antibiotic drug allergies, followed by local urologist Dr. Alvarez for overactive bladder, started on 2 new overactive bladder medications one-week ago, now has sensation that she can not fully empty her bladder. Also has urinary dribbling like symptoms. No fevers or chills. Denies flank pain. Some suprapubic area discomfort. Not currently on any antibiotics. Related Data Home Medications ?Medication ?Instructions ?Recorded ?Confirmed aspirin 81 mg tablet,delayed 81 mg PO DAILY 07/18/21 02/19/25 release (Adult Aspirin Regimen) nitroglycerin 0.4 mg sublingual 0.4 mg sublingual Q5M PRN chest 06/07/23 02/19/25 tablet pain levothyroxine 112 mcg tablet 137 mcg PO DAILY 02/19/25 02/19/25 liothyronine 5 mcg tablet 5 mcg PO BID 02/19/25 02/19/25 Previous Rx's ?Medication ?Instructions ?Recorded alendronate 70 mg tablet 70 mg PO QWEEK #12 tabs 07/19/24 atorvastatin 40 mg tablet 40 mg PO BEDTIME #90 tabs 07/19/24 furosemide 20 mg tablet (Lasix) 20 mg PO BID PRN edema #180 tabs 07/19/24 losartan 100 mg tablet 100 mg PO DAILY #90 tabs 07/19/24 metformin 1,000 mg tablet 1,000 mg PO BID #180 tabs 07/19/24 metoprolol succinate 50 mg 50 mg PO DAILY #90 tabs 07/19/24 tablet,extended release 24 hr (Toprol XL) nifedipine 30 mg tablet,extended 30 mg PO DAILY #90 tabs 07/19/24 release 24 hr conjugated estrogens 0.625 mg/gram 0.625 mg vaginal DAILY #30 grams 01/05/25 vaginal cream fosfomycin tromethamine 3 gram 1 packet PO ONCE #1 ea 01/22/25 oral packet mirabegron 50 mg tablet,extended 50 mg PO DAILY #90 tabs 01/30/25 release 24 hr tolterodine 4 mg capsule,extended 4 mg PO DAILY #90 caps 01/30/25 release 24 hr cefdinir 300 mg capsule 300 mg PO BID 7 days #14 caps 02/19/25 Allergies Allergy/AdvReac Type Severity Reaction Status Date / Time levofloxacin (From Levaquin) Allergy Intermediate Hives Verified 01/17/25 08:19 ibuprofen AdvReac Intermediate Rectal Verified 01/17/25 08:19 bleeding amoxicillin (From Augmentin) AdvReac Unknown Unknown Verified 01/17/25 08:19 clavulanic acid (From AdvReac Unknown Unknown Verified 01/17/25 08:19 Augmentin) clindamycin AdvReac Unknown Unknown Verified 01/17/25 08:19 tetracycline AdvReac Unknown Unknown Verified 01/17/25 08:19 CODEINE Allergy Severe STOMACH Uncoded 01/17/25 08:19 CRAMPS, I CRAMP UP FLUCONAZOLE Allergy Severe STOMACH Uncoded 01/17/25 08:19 CRAMPS, RASH From CIPRO Allergy Severe RASH Uncoded 01/17/25 08:19 HYDROCODONE Allergy Severe STOMACH Uncoded 01/17/25 08:19 CRAMPS, I CHOKE UP NITROFURANTOIN Allergy Severe THROAT Uncoded 01/17/25 08:19 SWELLING, HIVES, I CAN'T BREATHE SULFA Allergy Severe STOMACH Uncoded 01/17/25 08:19 CRAMPS, I CHOKE UP POLLEN Allergy Unknown Uncoded 01/17/25 08:19 Patient History Medical History Incomplete bladder emptying Peripheral neuropathy Other low back pain Grade II diastolic dysfunction Type 2 diabetes, controlled, with neuropathy Allergy to multiple antibiotics Diabetic neuropathy Reflux, vesicoureteral Diabetic neuropathy History of tobacco use Vaginal itching Urge incontinence Coronary artery disease Osteoporosis Parkinson's disease Fractures Foot pain Carpal tunnel syndrome (~1976) Polio (~194) Measles (~1954) Chicken pox (~1949) Essential hypertension Recurrent UTI Dupuytren's contracture Dyslipidemia Hypothyroidism (~1998) Type 2 diabetes mellitus without complication (~1969) Surgical History Anesthesia History of back surgery (~2018) History of abdominoplasty History of carpal tunnel release Family History Father Murder Mother Brain tumor Sister Substance abuse Social History Smoking Status: Never smoker Exam Narrative Exam Narrative: GENERAL: Well-developed patient, in mild distress. HEAD: Atraumatic. Normocephalic. EYES: Pupils equal round and reactive. Extraocular motions intact. No scleral icterus. No injection or drainage. ENT: Nose without bleeding, purulent drainage. Throat without erythema, tonsillar hypertrophy or exudate. Airway patent. NECK: Trachea midline. Non tender CARDIOVASCULAR: Regular rate and rhythm without murmurs, gallops, or rubs. RESPIRATORY: Clear to auscultation. Breath sounds equal bilaterally. No wheezes, rales, or rhonchi. GASTROINTESTINAL: Abdomen soft, non-tender, nondistended. EXTREMITIES: No edema or joint tenderness. BACK: Nontender without deformity or crepitance. No flank tenderness. NEURO: AOx3. Motor functions grossly nonfocal SKIN: No rash or erythema of visible areas Initial Vital Signs Initial Vital Signs: Vital Signs Pulse Rate 56 L 02/19/25 03:31 Pulse Oximetry 96 02/19/25 03:31 Course Orders Ordered: ED Orders 02/19/25 03:21 Complete Blood Count AUTO DIFF Stat Comprehensive Metabolic Panel Stat Lipase Stat Urine Culture Stat Urine Microscopic Stat Vital Signs Vital signs: Vital Signs - 8 hr 02/19/25 03:31 02/19/25 03:36 02/19/25 04:00 Temperature 97.9 F Pulse Rate 56 L 57 L 56 L Respiratory Rate 16 Blood Pressure 138/68 Pulse Oximetry 96 96 96 Oxygen Delivery Method Room Air 02/19/25 04:40 Temperature Pulse Rate 56 L Respiratory Rate 16 Blood Pressure 132/60 Pulse Oximetry 96 Oxygen Delivery Method Room Air Medical Decision Making Lab Data Labs: Lab Results 02/19/25 Range/Units 03:21 Urine RBC 0-1/hpf (0-5/HPF) Urine WBC 30-100/hpf H (0-5/HPF) Ur Squamous Epith Cells None seen (0-5/HPF) Urine Bacteria Many (>30) H (None) Ur Culture Indicated? Specimen cultured Vol Urine Centrifuged 10ml (spun) Urine Dip Bedside Urine Glucose 100 mg/dl Bedside Urine Bilirubin - Negative Bedside Urine Ketone - Negative Urine Specific [place] 1.005 Bedside Urine Occult Blood + Bedside Urine pH 8.0 Bedside Urine Protein +/- 15 Bedside Urine Urobilinogen - Negative Bedside Urine Nitrite - Negative Bedside Urine Leukocytes +++ 500 Esterase Point of care testing: Urine Dip Bedside Urine Glucose 100 mg/dl Bedside Urine Bilirubin - Negative Bedside Urine Ketone - Negative Urine Specific [place] 1.005 Bedside Urine Occult Blood + Bedside Urine pH 8.0 Bedside Urine Protein +/- 15 Bedside Urine Urobilinogen - Negative Bedside Urine Nitrite - Negative Bedside Urine Leukocytes +++ 500 Esterase MDM Narrative Medical decision making narrative: 84-year-old female with overactive bladder on 2 new bladder related medications started last week, feels sensation of incomplete bladder emptying. You have urinary infections, many allergies to varied antibacterials, concern with urinary dribbling that she might have another infection. Records review, microbiology. Urine culture from 01/17/2025 most recent, grew greater than 100,000 colonies Klebsiella pneumoniae. Sensitive to Augmentin, Unasyn, cefazolin, cefepime, ceftazidime, ceftriaxone, ciprofloxacin, ertapenem, gentamicin, or imipenem, levofloxacin, tobramycin, trimethoprim sulfa, piperacillin tazobactam. Intermediate to nitrofurantoin. Resistant to ampicillin. Patient has recorded antibiotic drug allergies to levofloxacin, ciprofloxacin, Augmentin, clindamycin, tetracycline, nitrofurantoin, sulfa. Urinalysis today shows bacteriuria with some inflammatory cells. Urine culture triggered. We found prior prescription October 2024 for cefdinir antibioitic, not listed as drug allergy. She tolerated this well then. Most recent Klebsiella species from urine culture last month was cephalosporin sensitive. Consider course of cefdinir for possible urinary tract infection. Referred back to Urology Dr. Alvarez she did have a fairly generous PVR and she is taking 2 new medications for overactive bladder, perhaps they are working too well. Perhaps medical regimen needs to be simplified to 1 or perhaps reduced dose. Defer this decision to Urology. We will cover with cefdinir antibiotic, 1st dose now, prescription for 7 day course. Discharged home with family. Discharge Plan Departure Patient Disposition: Home Clinical Impression: Urinary retention, Urinary tract infection Activity Restrictions/Additional Instructions: History of recurrent urinary tract infections, and urge incontinence, followed by local urologist, having been put on 2 new medications last week for overactive bladder. Sensation of incomplete bladder emptying. No fever on triage. Urinalysis suspicious for infection. Numerous antibiotic drug allergies noted. Urine culture from last month grew Klebsiella bacteria, sensitive to many antibiotics, however limited choices due to extensive antibiotic drug allergy list. Cephalosporins not listed in drug allergies, and the Klebsiella species was sensitive to cephalosporins. We will prescribe oral cefdinir antibiotic, which was also prescribed in October 2024, no mention of any adverse reaction, perhaps this was tolerated. Prescription for 7 day course cefdinir sent to your pharmacy. Follow up advised with your urologist Dr. Alvarez to query about any adjustments for overactive bladder new prescription medication. Prescriptions: New cefdinir 300 mg capsule 300 mg PO BID 7 Days Qty: 14 0RF No Action conjugated estrogens 0.625 mg/gram cream 0.625 mg vaginal DAILY Qty: 30 11RF Rx Instructions: apply 1g daily for two weeks and then decrease to twice weekly fosfomycin tromethamine 3 gram packet 1 packet PO ONCE Qty: 1 0RF tolterodine 4 mg capsule,extended release 24hr 4 mg PO DAILY Qty: 90 3RF mirabegron 50 mg tablet extended release 24 hr 50 mg PO DAILY Qty: 90 3RF nitroglycerin 0.4 mg tablet, sublingual 0.4 mg sublingual Q5M PRN (Reason: chest pain) Rx Instructions: do not exceed 3 doses per episode atorvastatin 40 mg tablet 40 mg PO BEDTIME Qty: 90 3RF furosemide [Lasix] 20 mg tablet 20 mg PO BID PRN (Reason: edema) Qty: 180 3RF losartan 100 mg tablet 100 mg PO DAILY Qty: 90 3RF metformin 1,000 mg tablet 1,000 mg PO BID Qty: 180 3RF metoprolol succinate [Toprol XL] 50 mg tablet extended release 24 hr 50 mg PO DAILY Qty: 90 3RF nifedipine 30 mg tablet extended release 24hr 30 mg PO DAILY Qty: 90 3RF alendronate 70 mg tablet 70 mg PO QWEEK Qty: 12 3RF liothyronine 5 mcg tablet 5 mcg PO BID levothyroxine 112 mcg tablet 137 mcg PO DAILY aspirin [Adult Aspirin Regimen] 81 mg tablet,delayed release (DR/EC) 81 mg PO DAILY Referrals: Jimi Ramachandran DO [Physician, Urology] Jasbir Bojorquez ARNP [Primary Care Provider, Medical] Stand Alone Forms: Patient Portal/API
[2025-02-19 03:31] VITALS: PULSE 56; O2SAT 96
[2025-02-19 03:36] VITALS: BP 138/68; PULSE 57; RESP 16; TEMP 36.6; O2SAT 96; BMI 24.6
[2025-02-19 04:00] VITALS: PULSE 56; O2SAT 96
[2025-02-19 04:40] VITALS: BP 132/60; PULSE 56; RESP 16; O2SAT 96
[2025-02-19 04:54] LABS: Bacteria Urine Many (>30); Culture Indicated Urine Specimen Cultured; RBC Urine 0-1/HPF (0-5/HPF); Squamous Epithelial Cell Urine None Seen (0-5/HPF); Urine Volume 10mL (spun); WBC Urine 30-100/HPF (0-5/HPF)
== END 2025-02-19 05:08 | disposition home or self-care (01) ==
PROVIDERS: Emergency Provider Emergency Medicine; Family Provider Internal Medicine Geriatric Medicine; PCP Registered Nurse Diabetes Educator
DX: R33.9 Retention of urine, unspecified (principal); N39.0 Urinary tract infection, site not specified
CPT/HCPCS: 51798; 81003; 81015; 87077; 87086; 87186; 99282

== ENCOUNTER → 2025-04-17 10:20 | Outpatient (CLI) | payer MEDICARE, BC, SELFPAY ==
--- NOTE | 2025-04-17 10:24 | DI.RAD.S_ITS ---
PROCEDURE: XR RIBS RT MIN 3V W CXR 1V INDICATIONS: eval R posterior rib pain, s/p trauma in January 2025 TECHNIQUE: 2 views of the ribs were acquired, along with a single view chest. COMPARISON: None. FINDINGS: Heart, mediastinum and pulmonary vascular: Heart is mildly enlarged.. Mediastinum is unremarkable. Pulmonary vascular is mildly distended Lungs: Moderate interstitial disease seen throughout both lungs with a focal sparing Pleural spaces: Normal-no effusions or pneumothorax. Bones and soft tissues: Moderate compression fracture seen the upper midthoracic spine which are likely chronic. No rib fracture identified IMPRESSION: No rib fracture. Moderate chronic wedge compression fractures upper midthoracic spine. Consider thoracic spine films. Mild cardiomegaly. Interstitial disease both lungs of indeterminate chronicity and etiology Dictated by: Randy Schuler M.D. on 04/18/2025 at 10:17 Approved by: Randy Schuler M.D. on 04/18/2025 at 10:19
== END ==
PROVIDERS: Family Provider Internal Medicine Geriatric Medicine; PCP Registered Nurse Diabetes Educator; Referring Provider Registered Nurse Diabetes Educator; Visit Provider Registered Nurse Diabetes Educator
DX: M48.54XA Collapsed vertebra, not elsewhere classified, thoracic region, initial encounter for fracture (principal); I51.7 Cardiomegaly; J84.9 Interstitial pulmonary disease, unspecified; R07.81 Pleurodynia
CPT/HCPCS: 71101

== ENCOUNTER → 2025-04-23 09:03 | Outpatient (CLI) | payer MEDICARE, BC, SELFPAY ==
--- NOTE | 2025-04-23 09:05 | DI.CT.S_ITS ---
PROCEDURE: CT CHEST WO CON INDICATIONS: further eval CXR showing poss ILD TECHNIQUE: Noncontrast 5 mm thick sections acquired from the pulmonary apices to the posterior costophrenic angles. 1 mm lung window, 5 mm thick coronal and sagittal and 7 mm axial MIP reformats were then acquired. For radiation dose reduction, the following was used: automated exposure control, adjustment of mA and/or kV according to patient size. COMPARISON: [facility], CR, XR RIBS RT MIN 3V W CXR 1V, 04/17/2025, 10:25. FINDINGS: Image quality: Diagnostic. Lower Neck: No enlarged lymph nodes. Thyroid: No thyroid nodules which require sonographic follow up, per consensus guidelines. Axillae: No enlarged lymph nodes. Chest Wall: Left breast calcifications. Bones: No displaced fracture. Lungs and Pleura: No pneumothorax or pleural effusions. Basilar predominant peripheral reticulation without honeycombing. Associated bronchiolectasis. 3 mm nodule in the right lung apex (series 3, image 42). Heart: Heart size is normal. No pericardial effusion. Three-vessel coronary artery calcifications. Thoracic Vessels: The aorta and pulmonary arteries demonstrate normal size. Mediastinum and [place]: No enlarged lymph nodes. Esophagus: No wall thickening. Small hiatal hernia. Upper Abdomen: Visualized upper abdomen solid organs and bowel loops appear normal. IMPRESSION: No displaced fracture. No pneumothorax. No effusion or contusion. Basilar predominant peripheral reticulation without honeycombing. Findings are concerning for interstitial lung disease. 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 Solid pulmonary nodule in the right lung apex measuring 3 mm. Consider 12 month follow-up per Fleischner society guidelines. Dictated by: Malvin Fitzpatrick M.D. on 04/23/2025 at 11:25 Approved by: Malvin Fitzpatrick M.D. on 04/23/2025 at 11:30
== END ==
LOC: CT 09:05
PROVIDERS: Family Provider Internal Medicine Geriatric Medicine; PCP Registered Nurse Diabetes Educator; Referring Provider Registered Nurse Diabetes Educator; Visit Provider Registered Nurse Diabetes Educator
DX: J84.9 Interstitial pulmonary disease, unspecified (principal); R93.89 Abnormal findings on diagnostic imaging of other specified body structures; J47.9 Bronchiectasis, uncomplicated; R91.1 Solitary pulmonary nodule; K44.9 Diaphragmatic hernia without obstruction or gangrene
CPT/HCPCS: 71250

== ENCOUNTER → 2025-09-03 10:11 | Outpatient (CLI) | payer MEDICARE, BC, SELFPAY | PROVIDERS: Family Provider Internal Medicine Geriatric Medicine; PCP Registered Nurse Diabetes Educator; Visit Provider Urology | DX: R33.9 Retention of urine, unspecified (principal); N39.0 Urinary tract infection, site not specified | CPT/HCPCS: 87077; 87086 ==